=== PATIENT | male | born 1960 | race Caucasian/White ===

== ENCOUNTER 2017-09-27 17:04 | Emergency (ER) | payer MEDICARE ==
[2017-09-27 17:19] VITALS: O2SAT 96
--- NOTE | 2017-09-27 17:25 | ERPHSYRPT ---
- History of Present Illness Time Seen by Provider: 09/27/17 17:21 Source: patient Exam Limitations: no limitations Patient Subjective Stated Complaint: pt states he was advised to come to Er from pain clinic due to hypertension. Triage Nursing Assessment: pt pink, warm, dry. pt ambulated into Er withoput difficulty. pt afebrile. Physician History: The patient is a 57-year-old male who was sent over from the pain clinic where his blood pressure was elevated at 220/130. He has no complaints except for a slight headache. He states that his diet habit was poor over the holidays where he was eating a lot more salt on his food. He believes he missed some of his hypertensive medicines the last 2 days. He denies nausea or vomiting. He denies visual changes. He denies numbness or tingling. His past medical history is significant for hypertension, COPD, diabetes. Timing/Duration: today Severity: moderate Modifying Factors: Improves With: nothing Associated Symptoms: denies symptoms Allergies/Adverse Reactions: No Known Drug Allergies Allergy (Verified 09/27/17 17:19) Home Medications: Esomeprazole Magnesium [Nexium] 40 mg PO DAILY 06/05/13 [History] Hydrocodone/Acetaminophen [Vicodin Hp 10-300 mg Tablet] 1 each PO UD 06/05/13 [ History] Paroxetine HCl 20 mg [Paxil 20 MG] 30 mg PO DAILY 06/05/13 [History] Rosuvastatin Calcium [Crestor] 5 mg PO DAILY 06/05/13 [History] Fluticasone/Salmeterol [Advair 250-50 Diskus] 1 ea IH DAILY 06/23/16 [History] Glyburide 2.5 mg PO DAILY 06/23/16 [History] Levothyroxine Sodium [Levoxyl] 25 mcg PO DAILY 06/23/16 [History] Lisinopril/Hydrochlorothiazide [Lisinopril-Hctz 20-12.5 mg Tab] 1 ea PO DAILY [History] Metformin HCl 500 mg [Glucophage 500 MG] 250 mg PO DAILY 06/23/16 [History ] Testosterone Cypionate 200 mg IM UD 06/23/16 [History] Armodafinil [Nuvigil] 150 mg PO DAILY 07/21/16 [History] Cholecalciferol (Vitamin D3) [Vitamin D3] 1,000 unit PO DAILY 07/21/16 [History] Ropinirole HCl [Requip] 1 mg PO TID 07/21/16 [History] Gabapentin 300 - 600 mg PO TID 04/06/17 [History] Nebivolol HCl [Bystolic] 20 mg PO DAILY 04/06/17 [History] Hx Tetanus, Diphtheria Vaccination/Date Given: Yes (up unknown) Hx Influenza Vaccination/Date Given: Yes Hx Pneumococcal Vaccination/Date Given: No Immunizations Up to Date: Yes - Review of Systems Constitutional: No Fever, No Chills Eyes: No Symptoms Ears, Nose, & Throat: No Symptoms Respiratory: No Cough, No Dyspnea Cardiac: No Chest Pain, No Edema, No Syncope Abdominal/Gastrointestinal: No Abdominal Pain, No Nausea, No Vomiting, No Diarrhea Genitourinary Symptoms: No Dysuria Musculoskeletal: No Back Pain, No Neck Pain Skin: No Rash Neurological: No Dizziness, No Focal Weakness, No Sensory Changes Psychological: No Symptoms Endocrine: No Symptoms Hematologic/Lymphatic: No Symptoms Immunological/Allergic: No Symptoms All Other Systems: Reviewed and Negative - Past Medical History Pertinent Past Medical History: Yes Neurological History: No Pertinent History ENT History: No Pertinent History Cardiac History: No Pertinent History, Hypertension Respiratory History: COPD Endocrine Medical History: Diabetes Type II GI Medical History: GERD History: No Pertinent History Psycho-Social History: No Pertinent History Male Reproductive Disorders: No Pertinent History - Past Surgical History Past Surgical History: Yes Neuro Surgical History: No Pertinent History Cardiac: No Pertinent History Respiratory: No Pertinent History Gastrointestinal: No Pertinent History Genitourinary: No Pertinent History Musculoskeletal: No Pertinent History Male Surgical History: No Pertinent History Other Surgical History: SLEEP APENA AND SINUS SURG - Social History Smoking Status: Current every day smoker How long have you smoked: 30 Exposure to second hand smoke: No Drug Use: none Patient Lives Alone: No - Nursing Vital Signs Nursing Vital Signs: Initial Vital Signs Temperature 97.8 F 09/27/17 17:13 Pulse Rate 75 09/27/17 17:13 Respiratory Rate 18 09/27/17 17:13 Blood Pressure 162/102 09/27/17 17:13 O2 Sat by Pulse Oximetry 96 09/27/17 17:13 Pain Scale Pain Intensity 0 - Physical Exam General Appearance: no apparent distress, alert Eye Exam: PERRL/EOMI, eyes nml inspection Ears, Nose, Throat Exam: normal ENT inspection, TMs normal, pharynx normal, moist mucous membranes Neck Exam: normal inspection, non-tender, supple, full range of motion Respiratory Exam: normal breath sounds, lungs clear, No respiratory distress Cardiovascular Exam: regular rate/rhythm, normal heart sounds, normal peripheral pulses Gastrointestinal/Abdomen Exam: soft, normal bowel sounds, No tenderness, No mass Rectal Exam: not done Back Exam: normal inspection, normal range of motion, No CVA tenderness, No vertebral tenderness Extremity Exam: normal inspection, normal range of motion, pelvis stable Neurologic Exam: alert, oriented x 3, cooperative, normal mood/affect, nml cerebellar function, nml station & gait, sensation nml, No motor deficits Skin Exam: normal color, warm, dry, No rash Lymphatic Exam: No adenopathy SpO2 Interpretation: normal SpO2: 96 Oxygen Delivery: Room Air - Progress Progress: improved Progress Note: 09/27/17 18:01 BP was 155/98. Counseled pt/family regarding: diagnosis - Departure Time of Disposition: 18:01 Departure Disposition: Home Clinical Impression: Elevated blood pressure reading Condition: Stable Critical Care Time: No Referrals: GUANAKO STOKES [ACTIVE STAFF] - Additional Instructions: You have a mildly elevated blood pressure today. You have known hypertension and take medicines to control your hypertension. When you return home this evening, please take your blood pressure medicines this evening as usual. Monitor your blood pressure. If her blood pressure is not well controlled in the next 1-2 days, please either return to the ER or see your primary medical doctor.
[2017-09-27 18:15] VITALS: BP 144/98; PULSE 68
== END 2017-09-27 18:09 | disposition home or self-care (01) ==
LOC: ED 17:04
DX: I10 Essential (primary) hypertension (principal); J44.9 Chronic obstructive pulmonary disease, unspecified; E11.9 Type 2 diabetes mellitus without complications; Z79.4 Long term (current) use of insulin; Z79.899 Other long term (current) drug therapy; K21.9 Gastro-esophageal reflux disease without esophagitis; Z72.0 Tobacco use
CPT/HCPCS: 99281

== ENCOUNTER 2021-03-14 02:30 | Emergency (ER) | payer MEDICARE ==
[2021-03-14 02:57] VITALS: O2SAT 98
[2021-03-14] MEDS ORDERED: Augmentin 875-125 Tablet PO ONE (03:02)
[2021-03-14] MEDS ORDERED: MORPHINE SULFATE 4 MG INJ IM ONE (03:03)
[2021-03-14] MEDS ORDERED: Augmentin 875-125 Tablet ONE (03:07)
[2021-03-14] MEDS ORDERED: MORPHINE SULFATE 4 MG INJ ONE (03:07)
--- NOTE | 2021-03-14 03:10 | ERPHSYRPT ---
- History of Present Illness Time Seen by Provider: 03/14/21 03:02 Source: patient Exam Limitations: no limitations Patient Subjective Stated Complaint: "My tooth hurts." Triage Nursing Assessment: Patient reported upper front tooth pain. he reported his front tooth has been loose for the past week. He reported biting something that really made it hurt. Does not see a dentist. Has had tooth infections in the past. Pain radiates to the face. Gums erythematous/edematous. Poor dentition with multiple sites of decay. Physician History: 60 years old male with multiple medical problems presented in the ER with chief complaint of right upper anterior jaw pain with loose incisor on the right for the last 2 to 3 days. Patient has been using [id number] pain medication with partial relief and earlier bite on something which aggravated the pain. Pain is moderate to severe sharp shooting, continuous with associated minimal swelling of gingiva. Denies fever or chills. Timing/Duration: days (2) Severity: severe ENT Location: dental Prearrival Treatment: over the counter meds Associated Symptoms: facial pain/swelling, jaw pain, tooth pain Allergies/Adverse Reactions: No Known Drug Allergies Allergy (Verified 03/14/21 02:35) Home Medications: Paroxetine HCl 20 mg [Paxil 20 MG] 30 mg PO DAILY 06/05/13 [History] Rosuvastatin Calcium [Crestor] 5 mg PO DAILY 06/05/13 [History] Fluticasone/Salmeterol [Advair 250-50 Diskus] 1 ea IH DAILY 06/23/16 [History] Lisinopril/Hydrochlorothiazide [Lisinopril-Hctz 20-12.5 mg Tab] 1 ea PO DAILY 06/23/16 [History] Metformin HCl 500 mg [Glucophage 500 MG] 250 mg PO DAILY 06/23/16 [History] Cholecalciferol (Vitamin D3) [Vitamin D3] 1,000 unit PO DAILY 07/21/16 [History] Gabapentin 300 mg PO DAILY 04/06/17 [History] Nebivolol HCl [Bystolic] 20 mg PO DAILY 04/06/17 [History] Hx Tetanus, Diphtheria Vaccination/Date Given: No (up unknown) Hx Influenza Vaccination/Date Given: Yes Hx Pneumococcal Vaccination/Date Given: No Travel Risk - International Travel Have you traveled outside of the country in past 3 weeks: No - Coronavirus Screening Are you exhibiting any of the following symptoms?: No Close contact with a COVID-19 positive Pt in past 14-21 Days: No - Vaccine Status Have you recieved a Covid-19 vaccination: Yes Bricklayer Helper: Unknown - Vaccination Dates Dates if Unknown: n/a - Review of Systems Constitutional: No Symptoms Eyes: No Symptoms Ears, Nose, & Throat: No Symptoms Respiratory: No Symptoms Cardiac: No Symptoms Abdominal/Gastrointestinal: No Symptoms Genitourinary Symptoms: No Symptoms Skin: No Symptoms Psychological: No Symptoms Endocrine: No Symptoms - Past Medical History Pertinent Past Medical History: Yes Neurological History: No Pertinent History ENT History: No Pertinent History Cardiac History: No Pertinent History, High Cholesterol, Hypertension Respiratory History: COPD Endocrine Medical History: Diabetes Type II GI Medical History: GERD History: No Pertinent History Psycho-Social History: Depression Male Reproductive Disorders: No Pertinent History - Past Surgical History Past Surgical History: Yes Neuro Surgical History: No Pertinent History Cardiac: No Pertinent History Respiratory: No Pertinent History Gastrointestinal: No Pertinent History Genitourinary: No Pertinent History Musculoskeletal: No Pertinent History Male Surgical History: No Pertinent History Other Surgical History: SLEEP APENA AND SINUS SURG - Social History Smoking Status: Current every day smoker How long have you smoked: 30 Exposure to second hand smoke: No Drug Use: none Patient Lives Alone: No - Nursing Vital Signs Nursing Vital Signs: Initial Vital Signs Temperature 98.6 F 03/14/21 02:31 Pulse Rate 94 H 03/14/21 02:31 Respiratory Rate 18 03/14/21 02:31 Blood Pressure 179/113 03/14/21 02:31 O2 Sat by Pulse Oximetry 98 03/14/21 02:31 Pain Scale Pain Intensity 4 - Physical Exam General Appearance: no apparent distress, alert, anxiety Eye Exam: bilateral eye: normal inspection, PERRL, EOMI Ear Exam: bilateral ear: auricle normal Nasal Exam: normal inspection Throat Exam: normal, dental tenderness (Loose right incisor with adjacent gingival swelling) Neck Exam: normal inspection, non-tender, supple, full range of motion Cardiovascular/Respiratory Exam: normal breath sounds, regular rate/rhythm Neurologic Exam: alert, oriented x 3, cooperative Skin Exam: normal color SpO2 Interpretation: normal SpO2: 98 O2 Delivery: Room Air Ordered Tests: Medication Summary Discontinued Medications Generic Name Dose Route Start Last Admin Trade Name Freq PRN Reason Stop Dose Admin Amoxicillin/Clavulanate Potassium 875 mg 03/14/21 03:02 03/14/21 03:10 Augmentin 875-125 Tablet PO 03/14/21 03:03 875 mg STAT ONE Administration Amoxicillin/Clavulanate Potassium Confirm 03/14/21 03:07 Augmentin 875-125 Tablet Administered 03/14/21 03:08 Dose 875 mg .ROUTE .STK-MED ONE Morphine Sulfate 4 mg 03/14/21 03:03 03/14/21 03:09 Morphine Sulfate 4 Mg Inj IM 03/14/21 03:04 4 mg STAT ONE Administration Morphine Sulfate Confirm 03/14/21 03:07 Morphine Sulfate 4 Mg Inj Administered 03/14/21 03:08 Dose 4 mg .ROUTE .STK-MED ONE - Progress Progress Note: 03/14/21 03:35 Patient has right anterior incisor loose with associated gingival swelling and tenderness. I have offered him localized nerve block but patient did not tolerate, given symptomatic treatment and started on Augmentin, recommended outpatient dentist follow-up. Counseled pt/family regarding: diagnosis, need for follow-up - Departure Departure Disposition: Home Clinical Impression: Dental infection Condition: Stable Critical Care Time: No Referrals: DOCTOR,NO FAMILY [Primary Care Provider] - KAYCEE AGUILA DDS [NON-STAFF PHY W/O PRIVILEGES] - (call in 1 day for reevaluation) Instructions: Dental Pain (DC) Additional Instructions: Follow-up with dentist for reevaluation. Return to ER for increasing swelling or if develop fever chills etc. Take pain medications as needed Prescriptions: Amoxicillin/Potassium Clav [Augmentin 875-125 Tablet] 875 mg PO BID 7 Days #14 tablet Hydrocodone/Acetaminophen [Hydrocodone-Acetamin 7.5-325] 1 each PO Q4-6HPRN PRN 2 Days #8 tablet MDD 5 PRN Reason: Pain
[2021-03-14 04:00] VITALS: BP 157/109; PULSE 76
== END 2021-03-14 03:57 | disposition home or self-care (01) ==
LOC: ED 02:30
DX: K04.7 Periapical abscess without sinus (principal)
CPT/HCPCS: 96372; 99284; J2270; A9270-GY